=== PATIENT | female | born 1950 | race Asian ===

== ENCOUNTER 2020-10-19 11:03 | Emergency (ER) | payer MEDICAID ==
[~2020-10-19] VITALS: Ht 162.6 cm; Wt 60.5 kg
[~2020-10-19 11:03] MED LIST: ASPI-1450 PO; ATOR40TA71 PO; CARV3 PO; CHOL200074 PO; CLOP75TA14 PO; FURO80 PO; LEVO750T68 PO; NIFE-40 PO; SEVE800T17 PO; UNKNOWN INSULIN SQ
[2020-10-19 12:08] LABS: BASOPHILS % (AUTO) 0.4 % (0.0-2.0); EOSINOPHILS % (AUTO) 8.4 % (1.0-6.0); HEMATOCRIT 32.6 % (36-46); HEMOGLOBIN 10.8 g/dL (12.0-16.0); LYMPHOCYTES # (AUTO) 2.5 K/uL (1.0-4.8); LYMPHOCYTES % (AUTO) 25.5 % (22.0-44.0); MEAN CORPUSCULAR HEMOGLOBIN 32.5 pg (26.0-34.0); MEAN CORPUSCULAR HGB CONC 33.1 G/dL (31.0-37.0); MEAN CORPUSCULAR VOLUME 98 fL (80-100); MONOCYTES # (AUTO) 0.6 K/uL (0.1-1.0); MONOCYTES % (AUTO) 6.6 % (2.0-9.0); NEUTROPHILS # (AUTO) 5.7 K/uL (1.8-7.7); NEUTROPHILS % (AUTO) 59.1 % (40.0-70.0); PLATELET COUNT (AUTO) 223 K/uL (150-450); RED BLOOD CELL COUNT(AUTO) 3.33 MIL/uL (4.00-5.20); RED CELL DISTRIBUTION WIDTH 15.6 % (11.5-14.5)
[2020-10-19 12:25] LABS: CALCIUM, TOTAL 9.6 mg/dL (8.8-10.5); CREATININE 7.56 mg/dL (0.60-1.30); PROTHROMBIN TIME 10.3 SEC (9.4-11.6)
[2020-10-19 12:29] LABS: BILIRUBIN,TOTAL 0.3 mg/dL (0.1-1.0); MAGNESIUM 2.6 mg/dL (1.80-2.40); PHOSPHORUS 5.2 mg/dL (2.5-4.9); TOTAL PROTEIN, SERUM 9.3 g/dL (6.4-8.2)
[2020-10-19 15:03] VITALS: BP 135/78
== END 2020-10-19 15:04 | disposition home or self-care (01) ==
LOC: EMS 11:06
DX: R42 Dizziness and giddiness (principal); E11.9 Type 2 diabetes mellitus without complications; I50.9 Heart failure, unspecified; Z87.891 Personal history of nicotine dependence
CPT/HCPCS: 83735; 84100; 93005; 99285; 36415-L1; 36415-TC; 71045-TC

== ENCOUNTER 2021-03-02 10:53 | Emergency (ER) | payer MEDICAID ==
[~2021-03-02] VITALS: Ht 162.6 cm; Wt 62.0 kg
[2021-03-02 12:21] VITALS: BP 151/104
[2021-03-02 12:41] LABS: HEMATOCRIT 32.4 % (36-46); HEMOGLOBIN 10.4 g/dL (12.0-16.0); MEAN CORPUSCULAR HEMOGLOBIN 27.5 pg (26.0-34.0); MEAN CORPUSCULAR HGB CONC 32.1 G/dL (31.0-37.0); MEAN CORPUSCULAR VOLUME 86 fL (80-100); RED BLOOD CELL COUNT(AUTO) 3.78 MIL/uL (4.00-5.20); RED CELL DISTRIBUTION WIDTH 16.7 % (11.5-14.5)
[2021-03-02 12:49] LABS: CALCIUM, TOTAL 8.4 mg/dL (8.8-10.5); POTASSIUM 4.5 mmol/L (3.5-5.1)
[2021-03-02 12:57] LABS: PLATELET COUNT (AUTO) 91 K/uL (150-450)
[2021-03-02 13:02] LABS: BAND NEUTROPHILS % (MANUAL) 26 % (0-5); BASOPHILS % (MANUAL) 1 % (0-2); LYMPHOCYTES % (MANUAL) 2 % (22-44); MONOCYTES % (MANUAL) 4 % (2-9); MYELOCYTES % 1 % (0-0); REACTIVE LYMPHOCYTES 1 % (0-0); SEGMENTED NEUTROPHILS % 65 % (40-70)
[2021-03-02 13:06] LABS: ALBUMIN 2.5 g/dL (3.4-5.0); BILIRUBIN,TOTAL 0.9 mg/dL (0.1-1.0); TOTAL PROTEIN, SERUM 6.7 g/dL (6.4-8.2)
== END 2021-03-02 13:50 | disposition home or self-care (01) ==
LOC: EMS 11:08
DX: R60.0 Localized edema (principal); R06.02 Shortness of breath; I13.2 Hypertensive heart and chronic kidney disease with heart failure and with stage 5 chronic kidney disease, or end stage renal disease; E11.22 Type 2 diabetes mellitus with diabetic chronic kidney disease; N18.6 End stage renal disease; I50.9 Heart failure, unspecified; Z99.2 Dependence on renal dialysis; Z87.891 Personal history of nicotine dependence; Z79.899 Other long term (current) drug therapy; Z79.82 Long term (current) use of aspirin
CPT/HCPCS: 71045; 80053; 82962; 85025; 93005; 99285; 36415-L1; 36415-TC

== ENCOUNTER 2021-04-05 08:47 | Emergency (ER) | payer MEDICAID ==
[~2021-04-05] VITALS: Ht 160 cm; Wt 72.7 kg
[2021-04-05] MEDS ORDERED: LIDOCAINE 5% TRANSDERMAL PATCH TD ONE (09:30)
[2021-04-05] MEDS ORDERED: ACETAMINOPHEN 500 MG TABLET PO ONE (09:30)
[2021-04-05 12:03] VITALS: BP 130/64
== END 2021-04-05 11:48 | disposition home or self-care (01) ==
LOC: EMS 08:50
DX: S22.41XA Multiple fractures of ribs, right side, initial encounter for closed fracture (principal); I13.0 Hypertensive heart and chronic kidney disease with heart failure and stage 1 through stage 4 chronic kidney disease, or unspecified chronic kidney disease; E11.22 Type 2 diabetes mellitus with diabetic chronic kidney disease; N18.9 Chronic kidney disease, unspecified; I50.9 Heart failure, unspecified; Z87.891 Personal history of nicotine dependence; Z79.899 Other long term (current) drug therapy; Z79.4 Long term (current) use of insulin; W01.0XXA Fall on same level from slipping, tripping and stumbling without subsequent striking against object, initial encounter; Y93.89 Activity, other specified; Y92.89 Other specified places as the place of occurrence of the external cause; Y99.8 Other external cause status
CPT/HCPCS: 71250; 99284; G0238; 99283

== ENCOUNTER 2022-09-22 03:47 | Emergency (ER) | payer MEDICAID ==
[~2022-09-22] VITALS: Ht 162.6 cm; Wt 65.0 kg
[~2022-09-22 03:47] MED LIST changes: +CLOP-31 PO; -CLOP75TA14 PO
[2022-09-22 05:04] LABS: BASOPHILS % (AUTO) 0.5 % (0.0-2.0); EOSINOPHILS % (AUTO) 5.6 % (1.0-6.0); HEMATOCRIT 29.9 % (36-46); LYMPHOCYTES # (AUTO) 1.5 K/uL (1.0-4.8); LYMPHOCYTES % (AUTO) 14.6 % (22.0-44.0); MEAN CORPUSCULAR HEMOGLOBIN 32.9 pg (26.0-34.0); MEAN CORPUSCULAR HGB CONC 33.3 G/dL (31.0-37.0); MEAN CORPUSCULAR VOLUME 99 fL (80-100); MONOCYTES % (AUTO) 9.8 % (2.0-9.0); NEUTROPHILS # (AUTO) 7.3 K/uL (1.8-7.7); NEUTROPHILS % (AUTO) 69.5 % (40.0-70.0); PLATELET COUNT (AUTO) 234 K/uL (150-450); RED BLOOD CELL COUNT(AUTO) 3.03 MIL/uL (4.00-5.20); RED CELL DISTRIBUTION WIDTH 14.9 % (11.5-14.5)
[2022-09-22 05:13] LABS: CALCIUM, TOTAL 9.2 mg/dL (8.8-10.5); CREATININE 7.07 mg/dL (0.60-1.30); POTASSIUM 3.2 mmol/L (3.5-5.1)
[2022-09-22 05:15] LABS: ALBUMIN 3.1 g/dL (3.4-5.0)
[2022-09-22] MEDS ORDERED: FUROSEMIDE 40 MG/4 ML VIAL IVP ONE (05:15)
[2022-09-22 05:25] LABS: BILIRUBIN,TOTAL 0.3 mg/dL (0.1-1.0); TOTAL PROTEIN, SERUM 7.8 g/dL (6.4-8.2)
[2022-09-22] MEDS ORDERED: POTASSIUM CHLORIDE 20 MEQ ER TABLET PO ONE (05:30)
[2022-09-22 05:38] VITALS: BP 211/90
[2022-09-22] MEDS ORDERED: GABA-529 PO (05:38)
[2022-09-22] MEDS ORDERED: CARV6.2534 PO (05:38)
[2022-09-22] MEDS ORDERED: BUME1TAB6 PO (05:38)
== END 2022-09-22 06:37 | disposition home or self-care (01) ==
LOC: EMS 03:48
DX: I13.2 Hypertensive heart and chronic kidney disease with heart failure and with stage 5 chronic kidney disease, or end stage renal disease (principal); I50.9 Heart failure, unspecified; N18.6 End stage renal disease; E11.22 Type 2 diabetes mellitus with diabetic chronic kidney disease; Z99.2 Dependence on renal dialysis; Z87.891 Personal history of nicotine dependence; Z98.890 Other specified postprocedural states
CPT/HCPCS: 99285; 96374; 71045; 80053; 82550; 83880; 84484; 85025; 93005; J1940